=== PATIENT | male | born 1975 | race African-American/Black ===

== ENCOUNTER 2022-02-07 13:31 | Emergency (ER) | payer SELFPAY ==
[~2022-02-07] VITALS: Ht 182.9 cm; Wt 129.3 kg
[2022-02-07 14:05] VITALS: BP 141/79
[2022-02-07] MEDS ORDERED: IBUP800T26 PO (14:39)
== END 2022-02-07 16:59 | disposition home or self-care (01) ==
LOC: ER 13:31
DX: M25.461 Effusion, right knee (principal)